=== PATIENT | female | born 1980 | race Caucasian/White ===

== ENCOUNTER → 2016-06-06 | Outpatient (CLI) | payer OTHER | LOC: FIMAGING 12:32 | PROVIDERS: ATTEND Obstetrics & Gynecology | DX: O09.523 Supervision of elderly multigravida, third trimester (principal); O43.893 Other placental disorders, third trimester; Z3A.35 35 weeks gestation of pregnancy ==

== ENCOUNTER 2016-06-18 06:09 | Inpatient (IN) | payer OTHER ==
[2016-06-18] MEDS ORDERED: LR 1,000 ML IV PRN (06:41)
[2016-06-18] MEDS ORDERED: TERBUTALINE SULFATE 1 MG/ML VIAL IV PRN (06:41)
[2016-06-18] MEDS ORDERED: OXYTOCIN/RINGERS LACTATE 1,000 ML IV PRN (06:41)
[2016-06-18] MEDS ORDERED: OXYTOCIN/LR *STANDARD DOSE PROTOCOL IV SCH (07:30)
[2016-06-18 07:56] LABS: % IMMATURE GRANULYOCYTES 0.7 % (0.0-1.1); ABSOLUTE IMMATURE GRANULOCYTES 0.08 10^3/uL (0.00-0.10); ADD DIFF? NO; ADD MORPH? NO; ADD SCAN? NO; ATYPICAL LYMPHOCYTE FLAG 0 (0-99); FRAGMENT RBC FLAG 0 (0-99); HEMATOCRIT 34.1 % (38.0-47.0); HEMOGLOBIN 12.3 g/dL (12.6-16.3); LEFT SHIFT FLG 0 (0-99); LIPEMIA HEMOLYSIS FLAG 90 (0-99); MEAN CELL HEMOGLOBIN 32.3 pg (27.9-34.1); MEAN CELL HEMOGLOBIN CONCENTR. 36.1 g/dL (32.4-36.7); MEAN CELL VOLUME 89.5 fL (81.5-99.8); MEAN PLATELET VOLUME 11.2 fL (8.7-11.7); PLATELET CLUMPS FLAG 0 (0-99); PLATELET COUNT 136 10^3/uL (150-400); RED BLOOD CELL COUNT 3.81 10^6/uL (4.18-5.33); RED CELL DISTRIBUTION WIDTH 14.5 % (11.5-15.2)
[2016-06-18] MEDS ORDERED: LIDOCAINE 1% 30 ML SDV ONE (08:31)
[2016-06-18] MEDS ORDERED: AMMONIA AROMATIC 1 EACH AMP IH ONE (08:31)
[2016-06-18] MEDS ORDERED: MISOPROSTOL 200 MCG TAB ONE (08:31)
--- NOTE | 2016-06-18 08:47 | OBPROG ---
OBG Progress Note Assessment/Plan: Assessment: 36 yo @ 37 2/7, IOL for mild pre-eclampsia, feels well. Plan: 06/18/16 08:44 FWB reassuring. GBS neg. Initial BP in severe range, rest have been in mild range, labs are pending, if returns to severe range, will begin magnesium. Plan on arom in a few hours. Subjective: 36 yo @ 37 2/7, IOL for mild pre-eclampsia, feels well. No headache or vision changes. Objective: 06/18/16 07:40 163/104, repeat 147/81 - SVE Dilation (cm): 1 Effacement (%): 50 Station: -3 Current Contraction Pattern: Irregular FHR (bpm): 130 FHR Pattern Variability: Moderate FHR Category: 2 ICD10 Worksheet Patient Problems: Problems Problem Status Onset Polyhydramnios in third trimester, antepartum complication Acute
[2016-06-18 09:02] LABS: ALANINE AMINOTRANSFERASE 28 IU/L (9-52); ASPARTATE AMINOTRANSFERASE 26 IU/L (14-46); BILIRUBIN,TOTAL 0.7 mg/dL (0.1-1.4); BILIRUBIN-CONJUGATED 0.2 mg/dL (0.0-0.5); BILIRUBIN-UNCONJUGATED 0.5 mg/dL (0.0-1.1); CREATININE 0.8 mg/dL (0.6-1.0); GLOMERULAR FILTRATION RATE > 60; LACTATE DEHYDROGENASE 491 IU/L (313-618); URIC ACID 6.2 mg/dL (2.5-6.8)
--- NOTE | 2016-06-18 13:11 | OBPROG ---
OBG Progress Note Assessment/Plan: Assessment: 36 yo @ 37 2/7, IOL for mild pre-eclampsia, feels well, contractions are stronger. Plan: FWB reassuring. GBS neg. Initial BP in severe range, rest have been in mild range, labs are pending, if returns to severe range, will begin magnesium. AROM is clear. Increase pitocin as needed. Subjective: 36 yo @ 37 2/7, IOL for mild pre-eclampsia, feels well, contractions are stronger. Objective: 06/18/16 07:40 06/18/16 07:40 Patient ABO/Rh O POSITIVE 06/18/16 07:40 Uric Acid 6.2 mg/dL (2.5-6.8) 06/18/16 07:40 Total Bilirubin 0.7 mg/dL (0.1-1.4) 06/18/16 07:40 Conjugated Bilirubin 0.2 mg/dL (0.0-0.5) 06/18/16 07:40 Unconjugated Bilirubin 0.5 mg/dL (0.0-1.1) 06/18/16 07:40 AST 26 IU/L (14-46) 06/18/16 07:40 ALT 28 IU/L (9-52) 06/18/16 07:40 Lactate Dehydrogenase 491 IU/L (313-618) 06/18/16 07:40 130s/90s - SVE Dilation (cm): 2 Effacement (%): Less than 50 Station: -2 Current Contraction Pattern: Regular FHR (bpm): 130 FHR Pattern Variability: Minimal FHR Category: 2 Membranes: AROM Amniotic Fluid Color: Clear ICD10 Worksheet Patient Problems: Problems Problem Status Onset Mild pre-eclampsia affecting fourth Acute Polyhydramnios in third trimester, antepartum complication Acute
[2016-06-18] MEDS: IBUPROFEN 600 MG TAB PO PRN (16:56)
[2016-06-18] MEDS: LABETALOL HCL 200 MG TAB PO SCH (17:46)
[2016-06-18] MEDS ORDERED: HYDROCORTISONE 0.5% CREAM TP PRN (18:31)
[2016-06-18] MEDS ORDERED: HYDROCODONE/APAP 5/325 TAB PO PRN (18:31)
[2016-06-18] MEDS ORDERED: SIMETHICONE 80 MG TAB CHEW PO PRN (18:31)
--- NOTE | 2016-06-18 18:31 | OBPROC ---
- Labor and Delivery Onset of Contractions Date: 06/18/16 Onset of Contractions Time: 08:00 Onset of Contractions Type: Induced Rupture of Membranes Date: 06/18/16 Rupture of Membranes Time: 12:30 Rupture of Membranes Type: Artificial Amniotic Fluid Color: Clear Dilation Complete Time: 16:00 Delivery Type: Spontaneous Placenta Delivery Date: 06/18/16 EBL: 200 ml Complications: None - Medications Labor Augmentation/Induction Meds Used: Pitocin Labor Augmentation/Induction Indication: Other (Specify) (mild pre-eclampsia) - [place] Info Infant A Delivery Date: 06/18/16 Delivery Time: 16:27 Sex of : Female Score (1 Min): 8 Score (5 Min): 8
[2016-06-19] MEDS: IBUPROFEN 600 MG TAB PO PRN ×4 (01:02→18:28)
[2016-06-19] MEDS: DOCUSATE SODIUM 100 MG CAP PO PRN ×2 (01:02→20:57)
[2016-06-19] MEDS: LABETALOL HCL 200 MG TAB PO SCH (06:02)
[2016-06-19 06:25] LABS: % IMMATURE GRANULYOCYTES 0.5 % (0.0-1.1); ABSOLUTE IMMATURE GRANULOCYTES 0.06 10^3/uL (0.00-0.10); ADD DIFF? NO; ADD MORPH? NO; ADD SCAN? NO; ATYPICAL LYMPHOCYTE FLAG 0 (0-99); FRAGMENT RBC FLAG 0 (0-99); HEMATOCRIT 30.6 % (38.0-47.0); LEFT SHIFT FLG 0 (0-99); LIPEMIA HEMOLYSIS FLAG 90 (0-99); MEAN CELL HEMOGLOBIN 32.4 pg (27.9-34.1); MEAN CELL HEMOGLOBIN CONCENTR. 35.9 g/dL (32.4-36.7); MEAN PLATELET VOLUME 11.3 fL (8.7-11.7); PLATELET CLUMPS FLAG 0 (0-99); PLATELET COUNT 144 10^3/uL (150-400); RED CELL DISTRIBUTION WIDTH 14.5 % (11.5-15.2)
[2016-06-19 06:40] LABS: ALANINE AMINOTRANSFERASE 24 IU/L (9-52); ASPARTATE AMINOTRANSFERASE 27 IU/L (14-46); BILIRUBIN,TOTAL 0.5 mg/dL (0.1-1.4); BILIRUBIN-CONJUGATED 0.3 mg/dL (0.0-0.5); BILIRUBIN-UNCONJUGATED 0.2 mg/dL (0.0-1.1); CREATININE 0.9 mg/dL (0.6-1.0); GLOMERULAR FILTRATION RATE > 60; LACTATE DEHYDROGENASE 587 IU/L (313-618); URIC ACID 5.6 mg/dL (2.5-6.8)
--- NOTE | 2016-06-19 08:50 | SOAPPROG ---
SOAP Progress Note Assessment/Plan: Assessment: PPD#1 s/p at term Recovering well Preeclampsia without severe features: BPs higher after delivery, started on labetalol 200 BID, now well controlled No symptoms Labs notable for Plts = 144K, Cr = 0.9, not meeting criteria for severe features rh pos, rub imm Plan: Monitor BPs Repeat PIH labs at noon Otherwise routine pp care 06/19/16 08:47 Subjective: Feels great. Pumping. Minimal bleeding. Minimal pain. Ambulating and voiding with no issues Objective: Vital Signs Temp Pulse Resp BP Pulse Ox 36.8 C 82 18 127/80 H 06/19/16 08:00 06/19/16 06:02 06/19/16 08:00 06/19/16 08:00 Laboratory Results 06/19/16 06:10 06/19/16 06:10 06/18/16 06/19/16 06/20/16 05:59 05:59 05:59 Output Total 200 Balance -200 Gen: NAD Breasts: soft Resp: unlabored CV: RRR Abd: soft, nontender, uterus firm below U Ext: no edema ICD10 Worksheet Patient Problems: Problems Problem Status Onset Mild pre-eclampsia affecting fourth Acute Polyhydramnios in third trimester, antepartum complication Acute
[2016-06-19 12:22] LABS: % IMMATURE GRANULYOCYTES 0.7 % (0.0-1.1); ABSOLUTE IMMATURE GRANULOCYTES 0.07 10^3/uL (0.00-0.10); ADD DIFF? NO; ADD MORPH? NO; ADD SCAN? NO; ATYPICAL LYMPHOCYTE FLAG 10 (0-99); FRAGMENT RBC FLAG 0 (0-99); HEMATOCRIT 30.8 % (38.0-47.0); LEFT SHIFT FLG 10 (0-99); LIPEMIA HEMOLYSIS FLAG 90 (0-99); MEAN CELL HEMOGLOBIN 31.6 pg (27.9-34.1); MEAN CELL HEMOGLOBIN CONCENTR. 35.7 g/dL (32.4-36.7); MEAN CELL VOLUME 88.5 fL (81.5-99.8); MEAN PLATELET VOLUME 11.2 fL (8.7-11.7); PLATELET CLUMPS FLAG 0 (0-99); PLATELET COUNT 164 10^3/uL (150-400); RED BLOOD CELL COUNT 3.48 10^6/uL (4.18-5.33); RED CELL DISTRIBUTION WIDTH 14.6 % (11.5-15.2)
[2016-06-19 12:42] LABS: ALANINE AMINOTRANSFERASE 25 IU/L (9-52); ASPARTATE AMINOTRANSFERASE 29 IU/L (14-46); CREATININE 0.8 mg/dL (0.6-1.0); GLOMERULAR FILTRATION RATE > 60; LACTATE DEHYDROGENASE 642 IU/L (313-618); URIC ACID 5.1 mg/dL (2.5-6.8)
[2016-06-19] MEDS: LABETALOL HCL 100 MG TAB PO SCH (20:54)
[2016-06-20] MEDS: IBUPROFEN 600 MG TAB PO PRN ×2 (00:02→06:03)
--- NOTE | 2016-06-20 08:15 | SOAPPROG ---
SOAP Progress Note Assessment/Plan: Assessment: 36 yo s/p , ppd 2, with mild pre-eclampsia, doing well. Plan: Bps in mild range on labetalol 100 mg bid, hesitant to increase it more due to reflex tachycardia. Rh +, rubella immune. Home today, f/u in 2 weeks for bp check. 06/20/16 08:14 Subjective: 36 yo s/p , ppd 2, with mild pre-eclampsia, doing well. Objective: Vital Signs Temp Pulse Resp BP Pulse Ox 36.3 C 65 16 140/91 H 96 06/19/16 20:00 06/20/16 06:01 06/20/16 06:01 06/20/16 06:01 06/20/16 06:01 Laboratory Results 06/19/16 12:05 06/19/16 12:05 06/19/16 06/20/16 06/21/16 05:59 05:59 05:59 Output Total 200 Balance -200 Physical Exam - Physical Exam General Appearance: no apparent distress Respiratory: lungs clear Cardiac/Chest: regular rate, rhythm Abdomen: non-tender Skin: warm/dry Extremities: non-tender Neuro/Psych: oriented x 3 ICD10 Worksheet Patient Problems: Problems Problem Status Onset Mild pre-eclampsia affecting fourth Acute Polyhydramnios in third trimester, antepartum complication Acute
[2016-06-20 08:44] VITALS: BP 143/92; PULSE 77; RESP 18; TEMP 98.2; O2SAT 97
[2016-06-20] MEDS: LABETALOL HCL 100 MG TAB PO SCH (09:06)
== END 2016-06-20 09:35 | disposition home or self-care (01) | DRG 774 ==
LOC: FLD 06:09 → FOB 19:03
PROVIDERS: ADMIT Midwife; ATTEND Obstetrics & Gynecology
PROC: 10E0XZZ Delivery of Products of Conception, External Approach (ICD-10-PCS; principal; 2016-06-18)
PROC: 10907ZC Drainage of Amniotic Fluid, Therapeutic from Products of Conception, Via Natural or Artificial Opening (ICD-10-PCS; principal; 2016-06-18)
DX: O14.03 Mild to moderate pre-eclampsia, third trimester (principal); Z3A.37 37 weeks gestation of pregnancy; Z37.0 Single live birth
CPT/HCPCS: J2590

== ENCOUNTER → 2016-06-25 | Outpatient (CLI) | payer OTHER | LOC: FLACT 09:30 | PROVIDERS: ATTEND Obstetrics & Gynecology | DX: O92.5 Suppressed lactation (principal) | CPT/HCPCS: G0463 ==

== ENCOUNTER → 2018-07-31 | Outpatient (CLI) | payer OTHER | LOC: FIMAGING 09:15 | PROVIDERS: ATTEND Obstetrics & Gynecology | DX: N63.20 Unspecified lump in the left breast, unspecified quadrant (principal) ==

== ENCOUNTER 2018-09-03 14:54 | Emergency (ER) | payer OTHER ==
[2018-09-03 15:01] VITALS: BP 150/94
--- NOTE | 2018-09-03 15:46 | EDPHY ---
H & P Stated Complaint: lac to l lthumb Time Seen by Provider: 09/03/18 15:45 HPI/ROS: Chief Complaint: Thumb laceration HPI: The patient presents to the ED with a superficial laceration to the tip of her left thumb. She was cutting vegetables and cut the tip of her distal nail bed. She denies any additional injury. Her tetanus shot is up-to-date. REVIEW OF SYSTEMS: Neuro: no headache, numbness, weakness Musculoskeletal: as above Skin: As above Source: Patient Exam Limitations: No limitations - Personal History LMP (Females 10-55): Over 28 Days Ago Current Tetanus Diphtheria and Acellular Pertussis (TDAP): Yes Tetanus Vaccine Date: 06/21/14 - Medical/Surgical History Hx Asthma: Yes Hx Chronic Respiratory Disease: No Hx Diabetes: No Hx Cardiac Disease: No Hx Renal Disease: No Hx Cirrhosis: No Hx Alcoholism: No Hx HIV/AIDS: No Hx Splenectomy or Spleen Trauma: No Other PMH: RAYNAULD'S, ASTHMA, HX OF R ULNAR HEAD FX W/ OPEN REDUCTION, R TIBIAL FX W/ CLOSED REDUCTION - Social History Smoking Status: Never smoked - Physical Exam Exam: General Appearance: Alert, no distress Neurological: Normal motor sensory exam noted throughout the left hand Skin: Patient cut through the tip of her nail only involving the left thumb. There is no laceration involving the dermis. Musculoskeletal: Neck is supple nontender Extremities: symmetrical, full range of motion Constitutional: Initial Vital Signs Temperature (C) 37 C 09/03/18 14:59 Heart Rate 73 09/03/18 14:59 Respiratory Rate 17 09/03/18 14:59 Blood Pressure 150/94 H 09/03/18 14:59 O2 Sat (%) 96 09/03/18 14:59 O2 Delivery Mode Room Air Allergies/Adverse Reactions: No Known Allergies Allergy (Verified 09/03/18 14:58) Home Medications: Medication Instructions Recorded Control 09/03/18 Medical Decision Making ED Course/Re-evaluation: The patient presents the ED with a nonsuturable laceration to the left thumb. It has been cleaned and dressed in the emergency department. She is advised to apply antibiotic ointment twice daily. Departure - Departure Disposition: Home, Routine, Self-Care Clinical Impression: Thumb laceration Qualifiers: Encounter type: initial encounter Damage to nail status: without damage Foreign body presence: without foreign body Laterality: left Qualified Code(s): S61.012A - Laceration without foreign body of left thumb without damage to nail , initial encounter Condition: Good Instructions: Laceration (ED) Additional Instructions: 1. Apply antibiotic ointment to the laceration twice a day. 2. Return to the ED for any increasing pain, redness, swelling or fever. 3. Please keep a dressing on the finger for the next week. Referrals: NONE *PRIMARY CARE P,. [Primary Care Provider] - As per Instructions
== END 2018-09-03 15:59 | disposition home or self-care (01) ==
DX: S61.112A Laceration without foreign body of left thumb with damage to nail, initial encounter (principal); W26.0XXA Contact with knife, initial encounter; Y93.G1 Activity, food preparation and clean up